=== PATIENT | male | born 1965 | race African-American/Black ===

== ENCOUNTER 2017-06-14 15:42 | Emergency (ER) | payer OTHER ==
[2017-06-14 16:32] VITALS: BP 157/99
[2017-06-14] MEDS ORDERED: VALIUM10 MG PO (16:33)
--- NOTE | 2017-06-14 16:34 | PHYS DOC ---
Adult General Chief Complaint Chief Complaint: LOWER BACK PAIN OR INJURY HPI HPI Patient is a 51 year old medical presents complaining of low back spasms that began 3 days ago when his dog yanked on the leash he was holding. Patient denies falling. Denies any loss of bowel bladder function. Review of Systems Review of Systems Constitutional: Denies fever or chills [] : Denies dysuria or hematuria [] Musculoskeletal: low back spasms Integument: Denies rash or skin lesions [] Neurologic: Denies headache, focal weakness or sensory changes [] Physical Exam Physical Exam Constitutional: Well developed, well nourished, no acute distress, non-toxic appearance. [] HENT: Normocephalic, atraumatic, bilateral external ears normal, oropharynx moist, no oral exudates, nose normal. [] Eyes: PERRLA, EOMI, conjunctiva normal, no discharge. [] Neck: Normal range of motion, no tenderness, supple, no stridor. [] Cardiovascular:Heart rate regular rhythm, no murmur [] Lungs & Thorax: Bilateral breath sounds clear to auscultation [] Abdomen: Bowel sounds normal, soft, no tenderness, no masses, no pulsatile masses. [] Skin: Warm, dry, no erythema, no rash. [] Back: No tenderness, no CVA tenderness. [] Extremities: No tenderness, no cyanosis, no clubbing, ROM intact, no edema. [] Neurologic: Alert and oriented X 3, normal motor function, normal sensory function, no focal deficits noted. [] Psychologic: Affect normal, judgement normal, mood normal. [] EKG EKG [] Radiology/Procedures Radiology/Procedures [] Course & Med Decision Making Course & Med Decision Making Pertinent Labs and Imaging studies reviewed. (See chart for details) Patient is in the ED with complaints of lumbar spasms for 3 days. No cauda equina syndrome symptoms. Discharged with Valium. Follow-up with his own PCP in 1-2 weeks. Dragon Disclaimer Dragon Disclaimer This electronic medical record was generated, in whole or in part, using a voice recognition dictation system. Departure Departure Impression: Primary Impression: Back spasm Disposition: 01 HOME, SELF-CARE Condition: STABLE Referrals: UNKNOWN PCP NAME (PCP) follow up with your doctor in one week Patient Instructions: Back Pain, Adult Additional Instructions: You were seen for back spasms. We highly recommend you follow-up with your doctor in 1-2 weeks. Come back to the emergency room at any point symptoms worsen. Scripts Diazepam (VALIUM) 10 Mg Tablet 10 MG PO TID, #15 TAB Prov: CHRISTIANO WALKER APRN 06/14/17 CHRISTIANO WALKER APRN Jun 14, 2017 16:33
== END 2017-06-14 16:48 | disposition home or self-care (01) ==
LOC: ER 15:42
DX: M62.830 Muscle spasm of back (principal)
CPT/HCPCS: 99283